=== PATIENT | female | born 1935 | race Two or more races ===

== ENCOUNTER → 2016-06-28 | Outpatient (CLI) | payer MEDICARE, BC ==
--- NOTE | 2016-06-28 15:26 | US ---
EXAMINATION TYPE: US venous doppler duplex LE LT DATE OF EXAM: 06/28/2016 3:16 PM COMPARISON: NONE CLINICAL HISTORY: M25.11 PAIN IN RT SHOULDER, M19.011 PRIMARY OSTEOARTHRITIS. SIDE PERFORMED: Left VESSELS IMAGED: External Iliac Vein (EIV) Common Femoral Vein Deep Femoral Vein Greater Saphenous Vein * Femoral Vein Popliteal Vein Small Saphenous Vein * Proximal Calf Veins (* superficial vessels) IMPRESSION: Left Leg: Negative for DVT, GSV and posterior tib v's also scanned per order and negative.
== END | disposition home or self-care (01) ==
LOC: RADUSWWP 14:41
PROVIDERS: ATTEND Physical Medicine & Rehabilitation
DX: M79.89 Other specified soft tissue disorders (principal); M19.011 Primary osteoarthritis, right shoulder; M75.41 Impingement syndrome of right shoulder; M51.17 Intervertebral disc disorders with radiculopathy, lumbosacral region; M43.17 Spondylolisthesis, lumbosacral region; M47.817 Spondylosis without myelopathy or radiculopathy, lumbosacral region; M41.86 Other forms of scoliosis, lumbar region; M47.814 Spondylosis without myelopathy or radiculopathy, thoracic region; R60.0 Localized edema; E11.42 Type 2 diabetes mellitus with diabetic polyneuropathy

== ENCOUNTER 2016-09-01 10:57 | Emergency (ER) | payer MEDICARE, BC ==
--- NOTE | 2016-09-01 11:56 | ED ---
General Adult HPI - General Chief complaint: Chest Pain Stated complaint: chills , shaking Time Seen by Provider: 09/01/16 11:10 Source: patient, family, RN notes reviewed Mode of arrival: wheelchair Limitations: physical limitation - History of Present Illness Initial comments: This is an 81-year-old female presents to the emergency department complaining that she has had the shakes yesterday and again today. Patient was at [facility] because a relative was having surgery and she started shaking and felt cold he put her in a warm blanket and later down and she slept for 3 hours when she awoke she was feeling fine. Patient this morning slept in late till about 9 :30 which is unusual for her and then she started having the shakes again and was cold. Patient states now that she has blanket she's not cold but she can't stop the shakes of her upper arms and started when she talks because she shaking so much. Patient states she has some mild chest pain as well. She denies any difficulty breathing she denies any diaphoresis. Patient denies any headache patient denies numbness weakness. Patient denies lightheadedness dizziness or near syncopal episode. Patient denies any recent fever or cough. Patient denies any dysuria hematuria urinary frequency. Patient denies abdominal pain patient denies nausea vomiting or diarrhea. - Related Data Home Medications Medication Instructions Recorded Confirmed ALPRAZolam [Xanax] 0.25 mg PO BID PRN 09/01/16 09/01/16 Aspirin EC [Ecotrin Low Dose] 81 mg PO DAILY 09/01/16 09/01/16 Baclofen [Lioresal] 10 mg PO TID PRN 09/01/16 09/01/16 HYDROcodone/APAP 10-325MG [[place] 1 tab PO Q6H PRN 09/01/16 09/01/16 10-325] Lisinopril [Zestril] 2.5 mg PO DAILY 09/01/16 09/01/16 Meclizine [Antivert] 12.5 mg PO TID PRN 09/01/16 09/01/16 Meloxicam [Mobic] 15 mg PO DAILY 09/01/16 09/01/16 Primidone [Mysoline] 50 mg PO BID 09/01/16 09/01/16 Propranolol HCl 40 mg PO BID@0800,1500 09/01/16 09/01/16 amLODIPine [Norvasc] 5 mg PO DAILY@1500 09/01/16 09/01/16 glipiZIDE [Glucotrol] 2.5 mg PO BID@0800,1500 09/01/16 09/01/16 Previous Rx's Medication Instructions Recorded ALPRAZolam [Xanax] 0.25 mg PO BID #20 tab 09/01/16 Allergies Allergy/AdvReac Type Severity Reaction Status Date / Time No Known Allergies Allergy Verified 09/01/16 11:39 Review of Systems ROS Statement: Those systems with pertinent positive or pertinent negative responses have been documented in the HPI. ROS Other: All systems not noted in ROS Statement are negative. Past Medical History Past Medical History: Cancer, Diabetes Mellitus, Hypertension Additional Past Medical History / Comment(s): tremors, colon cancer, breast cancer History of Any Multi-Drug Resistant Organisms: None Reported Past Surgical History: Appendectomy, Bowel Resection, Cholecystectomy, Hysterectomy, Joint Replacement, Tonsillectomy Additional Past Surgical History / Comment(s): mastectomy, right knee, cataracts Past Psychological History: No Psychological Hx Reported Smoking Status: Never smoker Past Alcohol Use History: None Reported Past Drug Use History: None Reported General Exam - General Exam Comments Initial Comments: GENERAL: Patient is well-developed and well-nourished. Patient is nontoxic and well- hydrated and is in mild distress and patient is shaking mostly in her arms and a little bit of her head. ENT: Neck is soft and supple. No significant lymphadenopathy is noted. Oropharynx is clear. Moist mucous membranes. Neck has full range of motion without eliciting any pain. EYES: The sclera were anicteric and conjunctiva were pink and moist. Extraocular movements were intact and pupils were equal round and reactive to light. Eyelids were unremarkable. PULMONARY: Unlabored respirations. Good breath sounds bilaterally. No audible rales rhonchi or wheezing was noted. CARDIOVASCULAR: There is a regular rate and rhythm without any murmurs gallops or rubs. ABDOMEN: Soft and nontender with normal bowel sounds. No palpable organomegaly was noted. There is no palpable pulsatile mass. SKIN: Skin is clear with no lesions or rashes and otherwise unremarkable. NEUROLOGIC: Patient is alert and oriented x3. Cranial nerves II through XII are grossly intact. Motor and sensory are also intact. Patient is easy to understand when she speaks however she stutters a little bit because of the shaking.. Symmetrical smile. Cerebellar exam grossly intact. MUSCULOSKELETAL: Normal extremities with adequate strength and full range of motion. No lower extremity swelling or edema. No calf tenderness. LYMPHATICS: No significant lymphadenopathy is noted PSYCHIATRIC: Normal psychiatric evaluation. Normal interpersonal interactions appears functionally intact in deals appropriately with others. patient seems moderately anxious Limitations: physical limitation Course Vital Signs 09/01/16 09/01/16 09/01/16 11:09 11:57 12:05 Temperature 97.8 F 99.4 F Pulse Rate 81 74 Respiratory 24 18 Rate Blood Pressure 165/77 166/77 O2 Sat by Pulse 97 98 Oximetry 09/01/16 09/01/16 13:05 13:10 Temperature 97.8 F Pulse Rate 77 65 Respiratory 155 H Rate Blood Pressure 155/65 155/70 O2 Sat by Pulse 98 Oximetry Medical Decision Making - Medical Decision Making EKG shows normal sinus rhythm at 66 bpm [place] interval 104 QRS is 72 QT interval 46 QTC is 425. Patient's EKG shows no ST segment elevation or depression or T- wave abdomen is noted. Patient got 0.5 of Ativan IV and her tremors and shaking stopped. Patient was good for a few hours however on discharge she started having a little bit of the tremors again given another 0.5 of Ativan. I spoke with Dr. Dr. Vides and he figured her anxiety was getting worse along with her baseline tremors and he recommended some Xanax 0.25 mg twice a day. I spoke to the patient and family member about this they were in agreement. - Lab Data Result diagrams: 09/01/16 12:06 09/01/16 12:06 Lab Results 09/01/16 09/01/16 09/01/16 Range/Units 12:06 12:06 12:06 WBC 8.0 (3.8-10.6) k/uL RBC 4.86 (3.80-5.40) m/uL Hgb 13.4 (11.4-16.0) gm/dL Hct 40.0 (34.0-46.0) % MCV 82.4 (80.0-100.0) fL MCH 27.6 (25.0-35.0) pg MCHC 33.5 (31.0-37.0) g/dL RDW 13.4 (11.5-15.5) % Plt Count 243 (150-450) k/uL Neutrophils % 71 % Lymphocytes % 20 % Monocytes % 6 % Eosinophils % 1 % Basophils % 1 % Neutrophils # 5.7 (1.3-7.7) k/uL Lymphocytes # 1.6 (1.0-4.8) k/uL Monocytes # 0.4 (0-1.0) k/uL Eosinophils # 0.1 (0-0.7) k/uL Basophils # 0.1 (0-0.2) k/uL PT (9.0-12.0) sec INR (<1.1) APTT (22.0-30.0) sec Sodium 138 (137-145) mmol/L Potassium 5.1 (3.5-5.1) mmol/L Chloride 101 (98-107) mmol/L Carbon Dioxide 27 (22-30) mmol/L Anion Gap 10 mmol/L BUN 16 (7-17) mg/dL Creatinine 0.80 (0.52-1.04) mg/dL Est GFR (MDRD) Af Amer >60 (>60 ml/min/1.73 sqM) Est GFR (MDRD) Non-Af >60 (>60 ml/min/1.73 sqM) Glucose 117 H (74-99) mg/dL Plasma Lactic Acid Afshin (0.7-2.0) mmol/L Calcium 9.8 (8.4-10.2) mg/dL Magnesium 2.0 (1.6-2.3) mg/dL Total Bilirubin 0.8 (0.2-1.3) mg/dL AST 24 (14-36) U/L ALT 22 (9-52) U/L Alkaline Phosphatase 60 (38-126) U/L Total Creatine Kinase 43 (30-135) U/L CK-MB (CK-2) 0.4 (0.0-2.4) ng/mL CK-MB (CK-2) Rel Index 0.9 Troponin I <0.012 (0.000-0.034) ng/mL Total Protein 7.1 (6.3-8.2) g/dL Albumin 4.4 (3.5-5.0) g/dL Urine Color Urine Appearance (Clear) Urine pH (5.0-8.0) Ur Specific Ewen (1.001-1.035) Urine Protein (Negative) Urine Glucose (UA) (Negative) Urine Ketones (Negative) Urine Blood (Negative) Urine Nitrite (Negative) Urine Bilirubin (Negative) Urine Urobilinogen (<2.0) mg/dL Ur Leukocyte Esterase (Negative) 09/01/16 09/01/16 09/01/16 Range/Units 12:45 12:45 13:11 WBC (3.8-10.6) k/uL RBC (3.80-5.40) m/uL Hgb (11.4-16.0) gm/dL Hct (34.0-46.0) % MCV (80.0-100.0) fL MCH (25.0-35.0) pg MCHC (31.0-37.0) g/dL RDW (11.5-15.5) % Plt Count (150-450) k/uL Neutrophils % % Lymphocytes % % Monocytes % % Eosinophils % % Basophils % % Neutrophils # (1.3-7.7) k/uL Lymphocytes # (1.0-4.8) k/uL Monocytes # (0-1.0) k/uL Eosinophils # (0-0.7) k/uL Basophils # (0-0.2) k/uL PT 10.2 (9.0-12.0) sec INR 1.0 (<1.1) APTT 21.6 L (22.0-30.0) sec Sodium (137-145) mmol/L Potassium (3.5-5.1) mmol/L Chloride (98-107) mmol/L Carbon Dioxide (22-30) mmol/L Anion Gap mmol/L BUN (7-17) mg/dL Creatinine (0.52-1.04) mg/dL Est GFR (MDRD) Af Amer (>60 ml/min/1.73 sqM) Est GFR (MDRD) Non-Af (>60 ml/min/1.73 sqM) Glucose (74-99) mg/dL Plasma Lactic Acid Afshin 1.8 (0.7-2.0) mmol/L Calcium (8.4-10.2) mg/dL Magnesium (1.6-2.3) mg/dL Total Bilirubin (0.2-1.3) mg/dL AST (14-36) U/L ALT (9-52) U/L Alkaline Phosphatase (38-126) U/L Total Creatine Kinase (30-135) U/L CK-MB (CK-2) (0.0-2.4) ng/mL CK-MB (CK-2) Rel Index Troponin I (0.000-0.034) ng/mL Total Protein (6.3-8.2) g/dL Albumin (3.5-5.0) g/dL Urine Color Light Yellow Urine Appearance Clear (Clear) Urine pH 7.0 (5.0-8.0) Ur Specific Ewen 1.011 (1.001-1.035) Urine Protein Negative (Negative) Urine Glucose (UA) Negative (Negative) Urine Ketones Negative (Negative) Urine Blood Negative (Negative) Urine Nitrite Negative (Negative) Urine Bilirubin Negative (Negative) Urine Urobilinogen <2.0 (<2.0) mg/dL Ur Leukocyte Esterase Negative (Negative) Disposition Clinical Impression: Anxiety Disposition: HOME SELF-CARE Condition: Good Instructions: Anxiety (ED) Prescriptions: ALPRAZolam [Xanax] 0.25 mg PO BID #20 tab Referrals: Ceferino Vides MD [Primary Care Provider] - 1-2 days Time of Disposition: 15:27
[2016-09-01 12:25] LABS: Basophils # (A) 0.1 k/uL (0-0.2); Basophils % (A) 1 %; CH 26.9; CHCM 32.7; Eosinophils # (A) 0.1 k/uL (0-0.7); Eosinophils % (A) 1 %; HGB 13.4 gm/dL (11.4-16.0); Luc # (Auto) 0.15; Luc % (Auto) 2; Lymphocytes # (A) 1.6 k/uL (1.0-4.8); Lymphocytes % (A) 20 %; MCH 27.6 pg (25.0-35.0); MCHC 33.5 g/dL (31.0-37.0); MCV 82.4 fL (80.0-100.0); Mean Platelet Volume 7.1; Monocytes # (A) 0.4 k/uL (0-1.0); Monocytes % (A) 6 %; Neutrophils # (A) 5.7 k/uL (1.3-7.7); Neutrophils % (A) 71 %; RBC 4.86 m/uL (3.80-5.40); RDW 13.4 % (11.5-15.5); WBC (Perox) 8.03
[2016-09-01 12:29] LABS: Anion Gap 10 mmol/L; Calcium 9.8 mg/dL (8.4-10.2); Carbon Dioxide 27 mmol/L (22-30); Chloride 101 mmol/L (98-107); Glucose 117 mg/dL (74-99); Non-African American GFR(MDRD) >60 (>60 ml/min/1.73 sqM); Sodium 138 mmol/L (137-145); Total Bilirubin 0.8 mg/dL (0.2-1.3); Total Protein 7.1 g/dL (6.3-8.2)
[2016-09-01 12:37] LABS: Creatine Kinase 43 U/L (30-135)
[2016-09-01 12:38] LABS: ALT 22 U/L (9-52); AST 24 U/L (14-36); Alkaline Phosphatase 60 U/L (38-126); Blood Urea Nitrogen 16 mg/dL (7-17); Potassium 5.1 mmol/L (3.5-5.1)
[2016-09-01 12:50] LABS: Creatine Kinase MB 0.4 ng/mL (0.0-2.4); Troponin I <0.012 ng/mL (0.000-0.034)
[2016-09-01] MEDS ORDERED: LORazepam 2 MG/ML SYRINGE IV STA ×2 (12:50→15:18)
[2016-09-01 13:25] LABS: Prothrombin Time 10.2 sec (9.0-12.0)
[2016-09-01 13:31] LABS: Partial Thromboplastin Time 21.6 sec (22.0-30.0)
--- NOTE | 2016-09-01 13:54 | XR ---
EXAMINATION TYPE: XR chest 2V DATE OF EXAM: 09/01/2016 1:51 PM COMPARISON: NONE TECHNIQUE: PA and lateral views submitted. HISTORY: Chest pain FINDINGS: The lungs are clear and there is no pneumothorax, pleural effusion, or focal pneumonia. Linear ascencio ges at the left lung base suggestive of atelectasis. Suggestion of carol along the left soft tissue flank region. Possibly within the breast. Correlate clinically. Degenerative change of the spine. IMPRESSION: 1. No acute process.
[2016-09-01 14:47] LABS: Appearance,Urine Clear (Clear); Bilirubin,Urine Negative (Negative); Glucose,Urine (UA) Negative (Negative); Ketones,Urine Negative (Negative); Leukocyte Esterase,Urine Negative (Negative); Nitrite,Urine Negative (Negative); Protein,Urine Negative (Negative); Specific Gravity,Urine 1.011 (1.001-1.035); UA Billing (MACRO vs. MICRO) CHEM; Urobilinogen,Urine <2.0 mg/dL (<2.0)
[2016-09-01 16:15] VITALS: BP 128/81; PULSE 75; RESP 20; TEMP 98.5
== END 2016-09-01 16:25 | disposition home or self-care (01) ==
LOC: EC 10:57
DX: F41.9 Anxiety disorder, unspecified (principal); R68.83 Chills (without fever); R25.1 Tremor, unspecified; I10 Essential (primary) hypertension; E11.9 Type 2 diabetes mellitus without complications; Z79.1 Long term (current) use of non-steroidal anti-inflammatories (NSAID); Z79.82 Long term (current) use of aspirin; Z79.84 Long term (current) use of oral hypoglycemic drugs; Z79.899 Other long term (current) drug therapy; Z85.3 Personal history of malignant neoplasm of breast; Z85.038 Personal history of other malignant neoplasm of large intestine; Z90.10 Acquired absence of unspecified breast and nipple; Z90.49 Acquired absence of other specified parts of digestive tract
CPT/HCPCS: 36415; 93005; 80053; 82550; 82553; 83605; 83735; 84484; 85025; 85610; 85730; 81003; 87040; 71020; 99285; 96374; 96376; J2060

== ENCOUNTER → 2019-02-21 | Outpatient (CLI) | payer MEDICARE, BC | END | disposition home or self-care (01) | LOC: NEUROMAIN 08:36 | PROVIDERS: ATTEND Otolaryngology | DX: R42 Dizziness and giddiness (principal) | CPT/HCPCS: 92537; 92540 ==